=== PATIENT | female | born 1995 | race African-American/Black ===

== ENCOUNTER 2016-10-10 16:35 | Emergency (ER) | payer MEDICAID ==
[~2016-10-10] VITALS: Ht 147.3 cm; Wt 59.0 kg
[2016-10-10 19:50] VITALS: BP 126/61
== END 2016-10-10 19:52 | disposition home or self-care (01) ==
LOC: ER 16:35
DX: H92.01 Otalgia, right ear (principal); D57.1 Sickle-cell disease without crisis
CPT/HCPCS: 99283

== ENCOUNTER 2017-06-12 09:42 | Emergency (ER) | payer MEDICAID ==
[~2017-06-12] VITALS: Ht 147.3 cm; Wt 60.0 kg
[2017-06-12 09:43] VITALS: BP 116/74
== END 2017-06-12 15:56 | disposition left against medical advice (07) ==
LOC: ER 09:42
DX: N89.8 Other specified noninflammatory disorders of vagina (principal); Z53.21 Procedure and treatment not carried out due to patient leaving prior to being seen by health care provider

== ENCOUNTER 2017-10-08 13:23 | Emergency (ER) | payer MEDICAID ==
[~2017-10-08] VITALS: Ht 154.9 cm; Wt 57.0 kg
[2017-10-08 13:32] VITALS: BP 118/68
== END 2017-10-08 15:14 | disposition home or self-care (01) ==
LOC: ER 15:14
DX: S61.217A Laceration without foreign body of left little finger without damage to nail, initial encounter (principal); R20.0 Anesthesia of skin; X58.XXXA Exposure to other specified factors, initial encounter; Y93.89 Activity, other specified; Y92.89 Other specified places as the place of occurrence of the external cause; Y99.8 Other external cause status
CPT/HCPCS: 99283

== ENCOUNTER 2017-12-16 20:41 | Emergency (ER) | payer SELFPAY ==
[~2017-12-16] VITALS: Ht 147.3 cm; Wt 57.0 kg
[2017-12-16 21:28] VITALS: BP 124/66
== END 2017-12-16 21:30 | disposition left against medical advice (07) ==
LOC: ER 20:41
DX: R10.30 Lower abdominal pain, unspecified (principal); Z53.21 Procedure and treatment not carried out due to patient leaving prior to being seen by health care provider

== ENCOUNTER 2017-12-27 19:09 | Emergency (ER) | payer MEDICAID ==
[~2017-12-27] VITALS: Ht 147.3 cm; Wt 52.0 kg
[2017-12-27 19:17] VITALS: BP 141/72
== END 2017-12-27 22:16 | disposition left against medical advice (07) ==
LOC: ER 19:09
DX: M25.521 Pain in right elbow (principal); M79.89 Other specified soft tissue disorders; Z53.21 Procedure and treatment not carried out due to patient leaving prior to being seen by health care provider